=== PATIENT | female | born 1990 | race Caucasian/White ===

== ENCOUNTER 2024-02-11 18:32 | Emergency (ER) | payer MEDICAID ==
[~2024-02-11] VITALS: Ht 165.1 cm; Wt 68.9 kg
[2024-02-11 18:59] VITALS: BP_SYST 114; PULSE 79; RESP 18; TEMP 97.1; O2SAT 100
== END 2024-02-11 20:40 | disposition left against medical advice (07) ==
LOC: SED 18:32
DX: F41.9 Anxiety disorder, unspecified (principal); R51.9 Headache, unspecified; Z53.21 Procedure and treatment not carried out due to patient leaving prior to being seen by health care provider